=== PATIENT | male | born 1940 | race Caucasian/White ===

== ENCOUNTER 2023-12-27 16:31 | Emergency (ER) | payer MEDICARE, OTHER, SELFPAY ==
[2023-12-27 16:38] VITALS: BP 111/74
--- NOTE | 2023-12-27 16:58 | ED.GENMED ---
History of Present Illness
General
Chief Complaint: Psychiatric Problem
Time Seen by Provider: 12/27/23 16:51
History of Present Illness
History of Present Illness:
Patient presents from [facility] unit for episode of agitation. Patient was calm with EMS and is currently very calm and cooperative. He is A&O x 1 at baseline. He is unable to verbalize any complaints at this time.
Phy Exam
Physical Exam
Physical Exam:
GENERAL APPEARANCE: Calm and cooperative, watching TV comfortably
EYES lids/conjunctiva normal
EARS/NOSE/THROAT Mucous membranes moist, uvula midline without oral pharyngeal erythema, exudate or swelling
HEAD/NECK normocephalic atraumatic, neck is supple.
RESPIRATORY respiratory effort normal, speaks in full sentences, no accessory muscle use. Lungs clear to auscultation without rhonchi, wheezes, rales
CARDIAC Regular rate and rhythm, no edema.
ABDOMINAL Soft, ND/NT.
MUSCLES/EXTREMITIES No abnormal range of motion, no swelling.
SKIN Warm, pink and dry.
NEUROLOGICAL patient is confused. Awake and alert. Moving all extremities
PSYCH No agitation
Course
Orders/Labs/Results
Orders:
Orders
12/27/23 17:02
Basic Metabolic Panel Urgent
Complete Blood Count/With Diff Urgent
Urinalysis Reflex To Culture Urgent
Date Specimen was Collected: 12/27/23
Time Specimen was Collected: 17:01
12/27/23 20:01
Electrocardiogram (*1) Urgent
Reason for Study: Palpitations
12/27/23 20:09
Troponin I Urgent
Abnormal Lab Results
12/27/23
17:02
RBC 3.03 L 10^6/uL
(4.70-6.10)
Hgb 9.8 L g/dL
(13.0-18.0)
Hct 27.7 L %
(39.0-52.0)
MCH 32.3 H pg
(27.0-31.0)
Absolute Lymphs (auto) 1.1 L 10^3/uL
(1.2-3.4)
Monocytes % 10.1 H %
(1.7-9.3)
BUN 32 H mg/dl
(9-20)
Creatinine 1.5 H mg/dL
(0.7-1.3)
Glucose 131 H mg/dl
(70-99)
12/27/23 17:02
12/27/23 17:02
Vital Signs
Initial and Last Documented VS:
Initial Vital Signs
Temp Pulse Resp BP Pulse Ox
97.5 F 78 16 111/74 98
12/27/23 16:38 12/27/23 16:38 12/27/23 16:38 12/27/23 16:38 12/27/23 16:38
Last Documented Vital Signs
Temp Pulse Resp BP Pulse Ox
97.5 F 78 16 145/72 100
12/27/23 16:38 12/27/23 16:38 12/27/23 16:38 12/27/23 20:00 12/27/23 20:15
*Critical Care Note
Total Time (30-74mins, 75-104mins- exclusive of procedures): Not Applicable
ED Attending Note
ED Attending Note
ED Attending Note:
Transient agitation in a patient with dementia. Currently very calm and cooperative. He is overall nontoxic and appears to be at his baseline. Will check basic labs and a urine to check for metabolic or infectious causes
Spoke with patient's POA and granddaughter Layla. States that patient was extremely agitated when she does have a history of. However this lasted for about an hour and he became diaphoretic and shaking with tachycardia. Patient does remain
calm and cooperative and at his baseline in the emergency department. Will add on troponin and EKG given diaphoresis and tachycardia
patient remains at baseline. Labs with CKD and normocytic anemia likely in setting of CKD. No evidence of bleeding or medical emergency at this time. Instructed to follow up with primary in the next week for recheck.
-
Portions of this chart may have been created with voice recognition software.� Occasional wrong word or��sound alike� substitutions may have occurred due to the inherent limitations of voice recognition software.
Discharge Plan
Departure
Patient Disposition: [facility]/SNF
Date of Disposition: 12/27/23
Time of Disposition: 21:09
Discharge Problem:
Agitation due to dementia, CKD (chronic kidney disease)
Prescriptions:
No Action
acetaminophen 325 mg Tablet
650 mg PO Q6HPRN PRN (Reason: fever)
atorvastatin 20 mg Tablet
20 mg PO DAILY
ropinirole 1 mg Tablet
1 mg PO HS
polyethylene glycol 3350 [Miralax] 17 gram Powder In Packet
17 g PO DAILY
cyanocobalamin (vitamin B-12) 1,000 mcg Tablet
1,000 mcg PO BID
carvedilol 3.125 mg Tablet
3.125 mg PO BID
cranberry extract 250 mg Capsule
750 mg PO BID
lorazepam 0.5 mg Tablet
0.5 mg PO Q4HPRN PRN (Reason: anxiety)
pantoprazole 40 mg Tablet,Delayed Release (Dr/Ec)
40 mg PO DAILY
nitroglycerin 0.4 mg Tablet, Sublingual
0.4 mg SUBLINGUAL [id number] PRN (Reason: chest pain)
aspirin 81 mg Tablet,Chewable
81 mg PO DAILY
gabapentin 100 mg Capsule
100 mg PO TID
finasteride 5 mg Tablet
5 mg PO DAILY
risperidone 0.5 mg Tablet
0.5 mg PO BID
insulin lispro [Humalog KwikPen Insulin] 100 unit/mL Insulin Pen
0 sliding scale dose SC TID
Patient Comments:
12/27/23:151-200=1u,201-250=2u,251-300=4u,301-350=6u,351-400=8u,401-450=10u
Saccharomyces boulardii 250 mg Capsule
250 mg PO
cholecalciferol (vitamin D3) [Vitamin D3] 25 mcg (1,000 unit) Tablet
25 mcg PO BID
PreserVision AREDS-2 250-90-40-1 mg Capsule
1 tab PO BID
albuterol sulfate 90 mcg/actuation Aerosol Powdr Breath Activated
2 inh INHALATION Q4HPRN PRN (Reason: sob)
magnesium oxide 400 mg magnesium Tablet
800 mg PO QPM
CoQ-10 200 mg capsule
200 mg PO
Referrals:
Paty Austin CRNP [Family Provider] -
Activity Restrictions/Additional Instructions:
follow up with your doctor in the next week for recheck
return to ER with any new or worsening symptoms
Interventions
Interventions:
*Risk Screen - Suicide Last Done: 12/27/23 16:40
*General Assessment Last Done: 12/27/23 16:40
*Neglect/Abuse Screening Last Done: 12/27/23 16:40
*ED COVID-19 Vaccine History Last Done: 12/27/23 16:40
ED-Psychological Assessment Last Done: 12/27/23 16:53
Discharge Date and Time
Print Language: INDONESIAN
[2023-12-27 17:00] VITALS: BP 109/68
[2023-12-27 17:21] LABS: % Basophils 0.8 % (0-2); % Eosinophils 3.7 % (0-6); % Immature Granulocytes 0.2 % (0-0.5); % Lymphocytes 21.8 % (20.5-51.1); % Monocytes 10.1 % (1.7-9.3); % Neutrophils 63.4 % (42.2-75.2); Absolute Eosinophils 0.2 10^3/uL (0-0.7); Absolute Lymphocytes 1.1 10^3/uL (1.2-3.4); Absolute Monocytes 0.5 10^3/uL (0.1-0.6); Absolute Neutrophils 3.1 10^3/uL (1.4-6.5); Hematocrit 27.7 % (39.0-52.0); Hemoglobin 9.8 g/dL (13.0-18.0); Mean Corp Hgb Conc. 35.4 g/dL (33.0-37.0); Mean Corpuscular Hgb 32.3 pg (27.0-31.0); Mean Corpuscular Volume 91.4 fL (80.0-94.0); Mean Platelet Volume 8.9 fL (7.4-10.4); Nucleated Red Blood Cells % 0 % (-); Platelet Count 151 10^3/uL (130-400); Red Blood Cell Count 3.03 10^6/uL (4.70-6.10); Red Cell Dist. Width 12.8 % (11.5-14.5); White Blood Cell Count 4.9 10^3/uL (4.8-10.8)
[2023-12-27 17:40] LABS: Blood Urea Nitrogen 32 mg/dl (9-20); Calcium 8.8 mg/dl (8.4-10.2); Carbon Dioxide 26 mmol/L (22-30); Chloride 104 mmol/L (98-107); Glucose 131 mg/dl (70-99); Potassium 4.7 mmol/L (3.5-5.1); Sodium 137 mmol/L (135-145); eGFR 45.62
[2023-12-27 18:00] VITALS: BP 114/63
[2023-12-27 19:00] VITALS: BP 122/91
[2023-12-27 19:35] LABS: Urine Albumin Negative (Neg - Trace); Urine Bilirubin Negative (Negative); Urine Character Clear (Clear); Urine Color Yellow; Urine Glucose Negative (Negative); Urine Ketone Negative (Negative); Urine Leukocyte Negative (Negative); Urine Nitrite Negative (Negative); Urine Occult Blood Negative (Negative); Urine Specific Gravity 1.015 (<1.030); Urine Urobilinogen Negative (Neg - 1+)
--- NOTE | 2023-12-27 19:41 | PHANOTE ---
med rec jeannette(12/27/23)- paperwork came incomplete, called Kusum Lopez at 19:21 and 19:40 with no answer. Medication frequencies were obtained from [facility].
[2023-12-27 20:00] VITALS: BP 145/72
[2023-12-27 20:43] LABS: Troponin I < 0.012 ng/ml
[2023-12-27 21:00] VITALS: BP 133/75
== END 2023-12-27 23:47 ==
LOC: EMR 16:31
PROVIDERS: EMERGENCY PHYSICIAN Emergency Medicine; FAMILY PHYSICIAN Nurse Practitioner Adult Health
DX: R45.1 Restlessness and agitation (principal); R00.0 Tachycardia, unspecified; R61 Generalized hyperhidrosis; N18.9 Chronic kidney disease, unspecified; F03.911 Unspecified dementia, unspecified severity, with agitation; Z79.82 Long term (current) use of aspirin; Z88.1 Allergy status to other antibiotic agents; Z88.3 Allergy status to other anti-infective agents; Z88.2 Allergy status to sulfonamides; Z88.8 Allergy status to other drugs, medicaments and biological substances
CPT/HCPCS: 99283; 80048; 81003; 84484; 85025; 93005

== ENCOUNTER 2024-01-03 05:46 | Emergency (ER) | payer MEDICARE, OTHER, SELFPAY ==
[2024-01-03 05:50] VITALS: BP 98/68
[2024-01-03 06:00] VITALS: BP 104/70
[2024-01-03 07:01] VITALS: BP 140/70
--- NOTE | 2024-01-03 07:10 | ED.GENMED ---
History of Present Illness
General
Chief Complaint: Fall
Source: patient
Exam Limitations: dementia
Time Seen by Provider: 01/03/24 06:56
Nursing documentation reviewed up to this point in time: agreed with
History of Present Illness
History of Present Illness:
83-year-old male from a dementia unit presents with a fall he is in a cervical collar has an abrasion on his right scalp and forehead states he tripped, fell right on his head no blood thinners reportedly moving all extremities,
Past History
Past History
ED Past Medical History: Other (Dementia)
Social History
Living: [facility]
Employment: Not employed
Family History
Family History: Unable to obtain (Dementia)
Review of Systems
Review of Systems
Unable to obtain full review of systems at this time due to: dementia
All Other Systems: Not applicable
Phy Exam
Physical Exam
Physical Exam:
Physical Exam
General: Demented male, not acutely ill superficial abrasion over the right forehead
Neck: No posterior neck pain no tongue bite
Heart: s1/s2 regular rate and rhythm, no murmur. equal radial pulses.
Lungs: no acute respiratory distress.
Abdomen: Nontender
Neuro: Moving all extremities
Skin: no rash
Psychiatric: cooperative
Extremities: no edema.
Course
Orders/Labs/Results
Orders:
Orders
01/03/24 06:[address] Cervical Spine W/o Iv Contr Urgent
Comment:
Reason For Exam: fall
CT Head W/o Iv Contrast Urgent
Comment:
Reason For Exam: fall
Vital Signs
Initial and Last Documented VS:
Initial Vital Signs
Temp Pulse Resp BP Pulse Ox
97.6 F 69 16 98/68 98
01/03/24 05:50 01/03/24 05:50 01/03/24 05:50 01/03/24 05:50 01/03/24 05:50
Last Documented Vital Signs
Temp Pulse Resp BP Pulse Ox
97.6 F 66 16 140/70 95
01/03/24 05:50 01/03/24 07:21 01/03/24 07:21 01/03/24 07:21 01/03/24 07:21
MDM/Problems Addressed
Differential Diagnosis Includes:
Intracerebral hemorrhage, cervical spine injury, trip and fall contusion abrasion
MDM/Problems Addressed:
Fall
Chronic conditions affecting care:
Dementia
Acute Exacerbation and/or Progression of Chronic Illness:
Dementia
*Radiology
Radiology exam reviewed: preliminary read by ED provider and radiology read reviewed
*Pulse Oximetry
Patient hypoxic: no
*Critical Care Note
Total Time (30-74mins, 75-104mins- exclusive of procedures): Not Applicable
Update Note
Update Note:
Update, prior slip and fall with mild head trauma is demented no blood thinners check CT of the head cervical spine
9:[address] noted
ED Attending Note
-
Portions of this chart may have been created with voice recognition software.� Occasional wrong word or��sound alike� substitutions may have occurred due to the inherent limitations of voice recognition software.
Discharge Plan
Departure
Patient Disposition: Home (Routine Discharge)
Date of Disposition: 01/03/24
Time of Disposition: 09:26
Patient with high blood pressure during this ER visit?: No
Condition: Good
Discharge Problem:
Fall
Instructions: Preventing falls in adults
Prescriptions:
No Action
acetaminophen 325 mg Tablet
650 mg PO Q6HPRN PRN (Reason: fever)
atorvastatin 20 mg Tablet
20 mg PO HS
ropinirole 1 mg Tablet
1 mg PO HS
polyethylene glycol 3350 [Miralax] 17 gram Powder In Packet
17 g PO DAILYPRN PRN (Reason: constipation)
cyanocobalamin (vitamin B-12) 1,000 mcg Tablet
1,000 mcg PO BID
carvedilol 3.125 mg Tablet
3.125 mg PO BID
cranberry extract 250 mg Capsule
750 mg PO BID
lorazepam 0.5 mg Tablet
0.5 mg PO Q4HPRN PRN (Reason: anxiety)
pantoprazole 40 mg Tablet,Delayed Release (Dr/Ec)
40 mg PO DAILY
nitroglycerin 0.4 mg Tablet, Sublingual
0.4 mg SUBLINGUAL [id number] PRN (Reason: chest pain)
aspirin 81 mg Tablet,Chewable
81 mg PO DAILY
gabapentin 100 mg Capsule
100 mg PO TID
finasteride 5 mg Tablet
5 mg PO DAILY
risperidone 0.5 mg Tablet
0.5 mg PO BID
insulin lispro [Humalog KwikPen Insulin] 100 unit/mL Insulin Pen
0 sliding scale dose SC AC
Rx Instructions:
151-200=1u,201-250=2u,251-300=4u,301-350=6u,351-400=8u,401-450=10u
Saccharomyces boulardii 250 mg Capsule
250 mg PO DAILY
cholecalciferol (vitamin D3) [Vitamin D3] 25 mcg (1,000 unit) Tablet
25 mcg PO BID
coQ10 (ubiquinol) 200 mg Capsule
200 mg PO DAILY
PreserVision AREDS-2 250-90-40-1 mg Capsule
1 tab PO BID
albuterol sulfate 90 mcg/actuation Aerosol Powdr Breath Activated
2 inh INHALATION R Q4HPRN PRN (Reason: sob)
magnesium oxide 400 mg magnesium Tablet
800 mg PO QPM
Referrals:
Lucy Cat MD [Family Provider] - Next open appointment (Your CT scan showed a nodule in your thyroid radiologist recommended that he have a dedicated ultrasound)
Interventions
Interventions:
*Risk Screen - Suicide Last Done: 01/03/24 05:50
*General Assessment Last Done: 01/03/24 06:42
*Neglect/Abuse Screening Last Done: 01/03/24 05:50
ED- Fall Risk Assessment Last Done: 01/03/24 06:42
*ED COVID-19 Vaccine History Last Done: 01/03/24 06:42
ED-Musculoskeletal Assessment Last Done: 01/03/24 06:42
ED- Neurological Assessment Last Done: 01/03/24 07:20
ED-Skin Assessment Last Done: 01/03/24 07:20
Discharge Date and Time
Print Language: SRI LANKAN
[2024-01-03 07:21] VITALS: BP 140/70
[2024-01-03 08:00] VITALS: BP 137/82
--- NOTE | 2024-01-03 09:48 | EDRN ---
Discharge report phoned to [facility]; spoke with Susanne, Copies of CT reports/ ER physician records to go with him. Instructed about head injury concerns, wound care
== END 2024-01-03 10:45 | disposition home or self-care (01) ==
LOC: EMR 05:46
PROVIDERS: EMERGENCY PHYSICIAN Emergency Medicine; FAMILY PHYSICIAN Internal Medicine
DX: S00.81XA Abrasion of other part of head, initial encounter (principal); S00.01XA Abrasion of scalp, initial encounter; W01.0XXA Fall on same level from slipping, tripping and stumbling without subsequent striking against object, initial encounter; F03.90 Unspecified dementia, unspecified severity, without behavioral disturbance, psychotic disturbance, mood disturbance, and anxiety
CPT/HCPCS: 99284; 70450; 72125

== ENCOUNTER 2024-01-03 21:07 | Emergency (ER) | payer MEDICARE, OTHER, SELFPAY ==
[2024-01-03 21:10] VITALS: BP 91/56
[2024-01-03 22:00] VITALS: BP 97/57
--- NOTE | 2024-01-03 22:06 | ED.GENMED ---
History of Present Illness
General
Chief Complaint: Skin Problem
Source: patient and senior care records
Exam Limitations: dementia
Time Seen by Provider: 01/03/24 22:03
Nursing documentation reviewed up to this point in time: agreed with
History of Present Illness
History of Present Illness:
Pleasantly demented 83-year-old male presents for [facility] for right elbow skin tear. According to nursing staff there is uncertainty about how he got the skin tear. He was seen in the emergency department earlier today and
discharged back to the senior care. They stated he was acting appropriately until about 3 PM when they found him in the hallway after a elopement alarm went off. Patient was standing trying to leave the department with blood coming from his
elbow. They were able to get him under control and sent about for evaluation.
Vital signs are stable. Patient not hypoxic
Nursing note reviewed. I agree with nursing documentation up to this point in time.
Home Meds and allergies reviewed.
NUMBER AND COMPLEXITY OF PROBLEMS ADDRESSED AT THE ENCOUNTER
� Chronic conditions affecting care: Dementia
� Acute Exacerbation and/or Progression of Chronic Illness: Dementia
� Differential Diagnosis includes: Skin tear
AMOUNT AND/OR COMPLEXITY OF DATA TO BE REVIEWED AND ANALYZED
I performed an independent evaluation of the following and my interpretation is:
EKG:
CT:
X-rays:
Ultrasound:
Laboratory Studies:
Other:
Review of other/old records: skilled nursing admission records from [facility]
Clinical information was obtained by an independent historian: Spoke with the [facility] who answered the phone and was involved with sending him to the emergency department.
Prescriptions/Medications Considered but not given:
Further testing considered but not performed:
RISK OF COMPLICATIONS AND/OR MORBIDITY OR MORTALITY OF PATIENT MANAGEMENT
Social determinants of health affecting care: Good Social Support
Discussion with other providers:
Escalation of care including admission/observation vs risk of discharge considered: Patient has been resting comfortably for over an hour and is in no acute distress. Physical exam yielded no further injuries. Patient appears
to be at baseline according to the description from the [facility]. Patient to be sent back to [facility] unit
CRITICAL CARE NOTE: Not applicable
Total Time (exclusive of procedures):
Update:
Past History
Past History
ED Past Medical History: Other (Dementia)
Social History
Living: senior care
Employment: Not employed
Family History
Family History: Unable to obtain (Dementia)
Review of Systems
Review of Systems
Allergies reviewed?: Yes
Unable to obtain full review of systems at this time due to: dementia
Other source history: transfer record
All Other Systems: Not applicable
Constitutional: Reports no symptoms
EENT: Reports no symptoms
Respiratory: Reports no symptoms
Cardiac: Reports no symptoms
ABD/GI: Reports no symptoms
: Reports no symptoms
Musculoskeletal: Reports no symptoms
Skin: Reports no symptoms
Neurological: Reports no symptoms
Endocrine: Reports no symptoms
Hematologic/Lymphatic: Reports no symptoms
Psychiatric: Reports no symptoms
Phy Exam
General Physical Exam
General Presentation: well appearing and no apparent distress
General Skin: warm and dry
General Habitus: normal
General Mental: alert
General Hydration: appears well hydrated
ENT Exam
ENT Exam: EOMI, pharynx normal, neck supple and normocephalic
Eye Exam
Eye Exam: PERRL, cornea clear and conjunctiva normal
Cardiovascular Exam
Cardiovascular Exam: regular rate/rhythm, no edema, no murmur and normal peripheral pulses
Pulmonary Exam
Pulmonary Exam: lungs clear, no respiratory distress, no rales, no crackles, no rhonchi, no stridor, no wheezing and no cough
Gastrointestinal Exam
Gastrointestinal Exam: normal bowel sounds, non tender, soft, no organomegaly, no pulsatile mass and non distended
Neurological Exam
Neurological Exam: speech normal and other (baseline)
Musculoskeletal Exam
Musculoskeletal Exam: full ROM and no edema
Skin Exam
Skin Exam: normal color and other (Small skin tear to the right elbow. Full range of motion in the joint. Abrasion above the right eye on the forehead which is superficial in nature )
Psychiatric Exam
Psychiatric Exam: labile
Course
Vital Signs
Initial and Last Documented VS:
Initial Vital Signs
Temp Pulse Resp BP Pulse Ox
99.2 F 73 18 91/56 98
01/03/24 21:10 01/03/24 21:10 01/03/24 21:10 01/03/24 21:10 01/03/24 21:10
Last Documented Vital Signs
Temp Pulse Resp BP Pulse Ox
99.2 F 73 15 111/52 95
01/03/24 21:10 01/03/24 23:00 01/03/24 23:00 01/03/24 23:00 01/03/24 23:15
*Critical Care Note
Total Time (30-74mins, 75-104mins- exclusive of procedures): Not Applicable
ED Attending Note
-
Portions of this chart may have been created with voice recognition software.� Occasional wrong word or��sound alike� substitutions may have occurred due to the inherent limitations of voice recognition software.
Discharge Plan
Departure
Patient Disposition: Custodial/SNF
Date of Disposition: 01/03/24
Time of Disposition: 22:36
Patient with high blood pressure during this ER visit?: No
Condition: Good
Discharge Problem:
Skin tear
Instructions: Wound Care (DC), Abrasions ED
Prescriptions:
No Action
acetaminophen 325 mg Tablet
650 mg PO Q6HPRN PRN (Reason: fever)
atorvastatin 20 mg Tablet
20 mg PO HS
ropinirole 1 mg Tablet
1 mg PO HS
polyethylene glycol 3350 [Miralax] 17 gram Powder In Packet
17 g PO DAILYPRN PRN (Reason: constipation)
cyanocobalamin (vitamin B-12) 1,000 mcg Tablet
1,000 mcg PO BID
carvedilol 3.125 mg Tablet
3.125 mg PO BID
cranberry extract 250 mg Capsule
750 mg PO BID
lorazepam 0.5 mg Tablet
0.5 mg PO Q4HPRN PRN (Reason: anxiety)
pantoprazole 40 mg Tablet,Delayed Release (Dr/Ec)
40 mg PO DAILY
nitroglycerin 0.4 mg Tablet, Sublingual
0.4 mg SUBLINGUAL [id number] PRN (Reason: chest pain)
aspirin 81 mg Tablet,Chewable
81 mg PO DAILY
gabapentin 100 mg Capsule
100 mg PO TID
finasteride 5 mg Tablet
5 mg PO DAILY
risperidone 0.5 mg Tablet
0.5 mg PO BID
insulin lispro [Humalog KwikPen Insulin] 100 unit/mL Insulin Pen
0 sliding scale dose SC AC
Rx Instructions:
151-200=1u,201-250=2u,251-300=4u,301-350=6u,351-400=8u,401-450=10u
Saccharomyces boulardii 250 mg Capsule
250 mg PO DAILY
cholecalciferol (vitamin D3) [Vitamin D3] 25 mcg (1,000 unit) Tablet
25 mcg PO BID
coQ10 (ubiquinol) 200 mg Capsule
200 mg PO DAILY
PreserVision AREDS-2 250-90-40-1 mg Capsule
1 tab PO BID
albuterol sulfate 90 mcg/actuation Aerosol Powdr Breath Activated
2 inh INHALATION R Q4HPRN PRN (Reason: sob)
magnesium oxide 400 mg magnesium Tablet
800 mg PO QPM
Referrals:
Lucy Cat MD [Family Provider] -
Interventions
Interventions:
*Risk Screen - Suicide Last Done: 01/03/24 21:10
*General Assessment Last Done: 01/03/24 21:10
*Neglect/Abuse Screening Last Done: 01/03/24 21:10
ED- Fall Risk Assessment Last Done: 01/03/24 21:18
*Nursing Disposition Last Done: 01/03/24 23:15
ED-Skin Assessment Last Done: 01/03/24 21:18
Discharge Date and Time
Discharge Date/Time: 01/03/24 23:16
Print Language: YAKUT
[2024-01-03 23:00] VITALS: BP 111/52
== END 2024-01-03 23:16 ==
LOC: EMR 21:07
PROVIDERS: EMERGENCY PHYSICIAN Student in an Organized Health Care Education/Training Program; FAMILY PHYSICIAN Internal Medicine
DX: S51.011A Laceration without foreign body of right elbow, initial encounter (principal); X58.XXXA Exposure to other specified factors, initial encounter; F03.90 Unspecified dementia, unspecified severity, without behavioral disturbance, psychotic disturbance, mood disturbance, and anxiety
CPT/HCPCS: 99282

== ENCOUNTER 2024-06-14 13:00 | Emergency (ER) | payer MEDICARE, OTHER, SELFPAY ==
[2024-06-14 13:10] VITALS: BP 155/75
[2024-06-14 13:11] VITALS: BP 155/75
--- NOTE | 2024-06-14 13:34 | ED.GENMED ---
History of Present Illness
<Landry Yates PA-C - Last Filed: 06/15/24 09:23>
General
Chief Complaint: Fall
Time Seen by Provider: 06/14/24 13:26
History of Present Illness
History of Present Illness:
83-year-old male with history of dementia presents from [facility] unit after a unwitnessed fall. Patient reportedly ambulates around the facility frequently, just prior to arrival was found on the floor of a another resident's room.
Patient is unaware of the fall.
Past History
<Landry Yates PA-C - Last Filed: 06/15/24 09:23>
Past History
ED Past Medical History: Other (Dementia)
Social History
Living: [facility]
Employment: Not employed
Family History
Family History: Unable to obtain (Dementia)
Review of Systems
<Landry Yates PA-C - Last Filed: 06/15/24 09:23>
Review of Systems
Allergies reviewed?: Yes
All Other Systems: ROS reviewed and negative except as documented in HPI and ROS
Phy Exam
<CELINA Pavon Last Filed: 06/15/24 09:23>
Physical Exam
Physical Exam:
GEN: Well appearing, NAD, WDWN
HEENT: Normocephalic and atraumatic oral mucosa moist, no scleral icterus
Cardiac: Regular rate
Lung: No respiratory distress, no tachypnea
MSK: No gross deformity or injuries. Pain elicited with passive range of motion of the right shoulder however no swelling or bruising is noted. No other findings of external trauma, pelvis is stable with no crepitus
Skin: Good color, no pallor or jaundice, no rashes
Neuro: AO x3, moves all extremities freely
Psych: Calm, cooperative
Course
<Landry Yates PA-C - Last Filed: 06/15/24 09:23>
Orders/Labs/Results
Orders:
Orders
06/14/24 13:19
Shoulder, Right, Trauma [CR Shoulder, Trauma - Right] Urgent
Comment:
Reason For Exam: fall
06/14/24 13:34
CT Head W/o Iv Contrast Urgent
Comment:
Reason For Exam: unwitnessed fall
Vital Signs
Initial and Last Documented VS:
Initial Vital Signs
Resp
0
06/14/24 13:08
Last Documented Vital Signs
Temp Pulse Resp BP Pulse Ox
97.5 F 54 18 162/107 99
06/14/24 13:11 06/14/24 15:42 06/14/24 15:42 06/14/24 16:43 06/14/24 16:44
<Raimundo Barrientos PA-C - Last Filed: 06/14/24 16:57>
Orders/Labs/Results
Orders:
Orders
06/14/24 13:19
Shoulder, Right, Trauma [CR Shoulder, Trauma - Right] Urgent
Comment:
Reason For Exam: fall
06/14/24 13:34
CT Head W/o Iv Contrast Urgent
Comment:
Reason For Exam: unwitnessed fall
Vital Signs
Initial and Last Documented VS:
Initial Vital Signs
Resp
0
06/14/24 13:08
Last Documented Vital Signs
Temp Pulse Resp BP Pulse Ox
97.5 F 54 18 162/107 99
06/14/24 13:11 06/14/24 15:42 06/14/24 15:42 06/14/24 16:43 06/14/24 16:44
<Raimundo Barrientos PA-C - Last Filed: 06/14/24 16:57>
*Critical Care Note
Total Time (30-74mins, 75-104mins- exclusive of procedures): Not Applicable
<Landry Yates PA-C - Last Filed: 06/15/24 09:23>
Update Note
Update Note:
Please note there are several erroneous vital signs documented such as a respiratory rate of 0 as well as a separately documented pulse rate of 0. These were inappropriately documented from the monitor by nursing staff. I have confirmed that the
patient is indeed alive and well at this point.
<Raimundo Barrientos PA-C - Last Filed: 06/14/24 16:57>
Update Note
Update Note:
Please note there are several erroneous vital signs documented such as a respiratory rate of 0 as well as a separately documented pulse rate of 0. These were inappropriately documented from the monitor by nursing staff. I have confirmed that the
patient is indeed alive and well at this point.
Assumed care of patient pending CT of head. CT of the head was performed and is reviewed by myself and radiology. There is no acute finding. He stable for discharge back to facility
ED Attending Note
<Landry Yates PA-C - Last Filed: 06/15/24 09:23>
-
Portions of this chart may have been created with voice recognition software.� Occasional wrong word or��sound alike� substitutions may have occurred due to the inherent limitations of voice recognition software.
Discharge Plan
Departure
Patient Disposition: Home (Routine Discharge)
Date of Disposition: 06/14/24
Time of Disposition: 16:57
Patient with high blood pressure during this ER visit?: No
Discharge Problem:
Fall
Instructions: Preventing falls in adults
Prescriptions:
No Action
acetaminophen 325 mg Tablet
650 mg PO Q6HPRN PRN (Reason: fever)
atorvastatin 20 mg Tablet
20 mg PO HS
ropinirole 1 mg Tablet
1 mg PO HS
polyethylene glycol 3350 [Miralax] 17 gram Powder In Packet
17 g PO DAILYPRN PRN (Reason: constipation)
cyanocobalamin (vitamin B-12) 1,000 mcg Tablet
1,000 mcg PO BID
carvedilol 3.125 mg Tablet
3.125 mg PO BID
cranberry extract 250 mg Capsule
750 mg PO BID
lorazepam 0.5 mg Tablet
0.5 mg PO Q4HPRN PRN (Reason: anxiety)
pantoprazole 40 mg Tablet,Delayed Release (Dr/Ec)
40 mg PO DAILY
nitroglycerin 0.4 mg Tablet, Sublingual
0.4 mg SUBLINGUAL [id number] PRN (Reason: chest pain)
aspirin 81 mg Tablet,Chewable
81 mg PO DAILY
gabapentin 100 mg Capsule
100 mg PO TID
finasteride 5 mg Tablet
5 mg PO DAILY
risperidone 0.5 mg Tablet
0.5 mg PO BID
insulin lispro [Humalog KwikPen Insulin] 100 unit/mL Insulin Pen
0 sliding scale dose SC AC
Rx Instructions:
151-200=1u,201-250=2u,251-300=4u,301-350=6u,351-400=8u,401-450=10u
Saccharomyces boulardii 250 mg Capsule
250 mg PO DAILY
cholecalciferol (vitamin D3) [Vitamin D3] 25 mcg (1,000 unit) Tablet
25 mcg PO BID
coQ10 (ubiquinol) 200 mg Capsule
200 mg PO DAILY
PreserVision AREDS-2 250-90-40-1 mg Capsule
1 tab PO BID
albuterol sulfate 90 mcg/actuation Aerosol Powdr Breath Activated
2 inh INHALATION R Q4HPRN PRN (Reason: sob)
magnesium oxide 400 mg magnesium Tablet
800 mg PO QPM
Referrals:
Lucy Cat MD [Family Provider] -
Activity Restrictions/Additional Instructions:
Continue current medication regimen. Return if worse
Interventions
Interventions:
*Risk Screen - Suicide Last Done: 06/14/24 13:11
*General Assessment Last Done: 06/14/24 13:11
*Neglect/Abuse Screening Last Done: 06/14/24 13:11
*Nursing Disposition Last Done: 06/14/24 20:32
ED-Musculoskeletal Assessment Last Done: 06/14/24 13:24
ED- Neurological Assessment Last Done: 06/14/24 13:24
ED-Skin Assessment Last Done: 06/14/24 13:24
Discharge Date and Time
Discharge Date/Time: 06/14/24 20:35
Print Language: BELARUSIAN
[2024-06-14 14:44] VITALS: BP 150/64
[2024-06-14 15:00] VITALS: BP 147/71
[2024-06-14 15:42] VITALS: BP 147/71
[2024-06-14 16:43] VITALS: BP 162/107
== END 2024-06-14 20:35 | disposition home or self-care (01) ==
LOC: EMR 13:00
PROVIDERS: EMERGENCY PHYSICIAN Emergency Medicine; FAMILY PHYSICIAN Internal Medicine
DX: Z04.3 Encounter for examination and observation following other accident (principal); M25.511 Pain in right shoulder; W19.XXXA Unspecified fall, initial encounter; Y92.128 Other place in nursing home as the place of occurrence of the external cause; F03.90 Unspecified dementia, unspecified severity, without behavioral disturbance, psychotic disturbance, mood disturbance, and anxiety; Z79.82 Long term (current) use of aspirin; Z88.1 Allergy status to other antibiotic agents; Z88.3 Allergy status to other anti-infective agents; Z88.2 Allergy status to sulfonamides; Z88.8 Allergy status to other drugs, medicaments and biological substances
CPT/HCPCS: 99284; 70450; 73030